=== PATIENT | male | born 1940 | race Caucasian/White ===

== ENCOUNTER 2016-12-28 09:40 | Emergency (ER) | payer MEDICARE, BC ==
[~2016-12-28 09:40] MED LIST: ADULT LOW DOSE81 MG PO; ASPIRIN ENTERI325 MG PO; CIALIS20 MG; CIPRO500 MG PO; CLARITIN10 MG PO; COZAAR50 MG PO; FISH OIL 1,0001 CA1 PO; FISH OIL 1,2001 CAP PO; H PO; HYDROCODONE-AP1 EAC2 PO; IRON325 MG PO; LEVAQUIN750 MG PO; LOVENOX40 MG/0.4 SQ; MAVIK2 MG PO; MELOXICAM15 MG PO; MUCINEX600 MG; MULTI-VITAMIN1 TAB PO; NEURONTIN100 MG PO; PERCOCET 5/3251 TAB PO; PERCOCET 7.5/321 TA1 PO; SENNA S TABLET1 TAB PO; SENOKOT-S TABLE1 TAB PO; TUMS ULTRA1000 M1 PO; VERAPAMIL HCL240 M PO
[2016-12-28] MEDS ORDERED: ZITHROMAX250 M1 PO (10:21)
[2016-12-28] MEDS ORDERED: PROMETHAZINE-C118 ML PO (10:22)
[2016-12-28] MEDS ORDERED: NORVASC5 M2 PO (10:22)
[2016-12-28] MEDS ORDERED: FLONASE ALLERG9.9 ML (10:32)
[2016-12-28] MEDS ORDERED: ASPIRIN325 M3 PO (10:32)
[2016-12-28 10:33] LABS: BASO % 0.1 % (0-2); HCT-HEMATOCRIT 43.8 % (36.0-53.5); HGB-HEMOGLOBIN 15.1 gm/dl (13.5-17.0); IMMATURE GRANULOCYTES ABSOLUTE 0.02 tho/cmm (0-0.03); IMMATURE GRANULOCYTES PERCENT 0.3 % (0-0.3); LYMPH ABSOLUTE COUNT 0.6 tho/cmm (0.8-4.5); MCH (MEAN CORPUSCULAR HGB) 29.6 pg (28.0-32.0); MCHC MEAN CORPUSCULAR HGB CONC 34.5 % (32.0-36.0); MCV (MEAN CELL VOLUME) 85.9 fl (82.0-96.0); MEAN PLATELET VOLUME 9.5 cmc (9.4-12.4); MONO % 10.4 % (0-12); MONOCYTE ABSOLUTE COUNT 0.8 tho/cmm (0.0-1.2); NEUTROPHIL ABSOLUTE COUNT 6.1 tho/cmm (1.6-8.0); NEUTROPHIL-AUTOMATED 6.1 tho/cmm (1.6-8.0); NEUTROPHILS % 81.2 % (40-80); PLATELET COUNT 185 tho/cmm (150-450); RED CELL DISTRIBUTION WIDTH 14.7 % (12.4-16.4); WHITE BLOOD COUNT 7.5 tho/cmm (4.0-10.0)
[2016-12-28 10:57] LABS: ALB/GLOB RATIO 0.7 (0.8-2.0); ALBUMIN 3.6 g/dl (3.5-5.0); ALKALINE PHOSPHATASE 67 U/L (33-138); ALT/SGPT 31 U/L (12-78); ANION GAP 13 mmol/L (0-20); AST/SGOT 33 U/L (10-40); BILIRUBIN,TOTAL 0.5 mg/dl (0.0-1.5); BLOOD UREA NITROGEN 25 mg/dl (6-24); CALCIUM 7.9 mg/dl (8.5-10.5); CARBON DIOXIDE-VENOUS 25 mmol/L (22-32); CHLORIDE 104 mmol/l (96-110); CREATININE 1.59 mg/dl (0.60-1.30); GLUCOSE 121 mg/dL (70-110); POTASSIUM 3.8 mmol/L (3.7-5.1); SODIUM 138 mmol/L (135-145); eGFR VALUE FOR BLACK 48 mL/Min
[2016-12-28 11:20] LABS: PROCALCITONIN <0.05 ng/ml (0.05-0.09)
== END 2016-12-28 13:20 ==
LOC: EDMED 09:40
PROVIDERS: Emergency Medicine
DX: B34.9 Viral infection, unspecified (principal); E86.0 Dehydration
CPT/HCPCS: J7030